=== PATIENT | male | born 1985 | race Caucasian/White ===

== ENCOUNTER 2024-03-14 01:17 | Emergency (ER) | payer OTHER ==
[~2024-03-14] VITALS: Ht 188 cm; Wt 113.4 kg
[2024-03-14] MEDS ORDERED: HYDROCODONE/APAP 10/325MG TABLET ONE (03:06)
[2024-03-14] MEDS: HYDROCODONE/APAP 10/325MG TABLET PO ONE (03:14)
[2024-03-14] MEDS ORDERED: ACET-2605 PO (10:07)
[2024-03-14] MEDS ORDERED: OXYC5CAP18 PO (10:07)
[2024-03-14] MEDS ORDERED: NAPR-1009 PO (10:07)
[2024-03-14 10:25] VITALS: BP 126/69; TEMP 98.3; O2SAT 98
== END 2024-03-14 10:25 | disposition home or self-care (01) ==
LOC: ER 01:38
DX: M25.531 Pain in right wrist (principal); M79.641 Pain in right hand; Z88.8 Allergy status to other drugs, medicaments and biological substances; W22.01XA Walked into wall, initial encounter; Y93.89 Activity, other specified; Y92.89 Other specified places as the place of occurrence of the external cause; Y99.8 Other external cause status
CPT/HCPCS: 73090-TC; 73130-TC